=== PATIENT | female | born 1990 | race Caucasian/White ===

== ENCOUNTER → 2023-01-04 | Outpatient (CLI) | payer OTHER ==
[2023-01-04 16:27] LABS: HEMATOCRIT 38.7 % (36.0-47.0); HEMOGLOBIN 12.8 g/dl (12.0-15.5); MEAN CORPUSCULAR HEMOGLOBIN 27.7 pg (27.0-33.0); MEAN CORPUSCULAR HGB CONC 33.1 g/dl (32.0-36.5); MEAN CORPUSCULAR VOLUME 83.8 fl (80.0-96.0); PLATELET COUNT, AUTOMATED 320 10^3/uL (150-450); RED BLOOD COUNT 4.62 10^6/uL (4.00-5.40); WHITE BLOOD COUNT 9.7 10^3/uL (4.0-10.0)
[2023-01-04 17:09] LABS: HIV 1&2 SCREEN NEGATIVE (NEGATIVE)
[2023-01-04 17:16] LABS: HEPATITIS C VIRUS ABY INDEX 0.12 INDEX (<0.8)
[2023-01-04 17:44] LABS: GC DNA AMPLIFICATION NEGATIVE (NEGATIVE)
== END ==
LOC: M PLALAB 13:13
PROVIDERS: ATTEND Specialist
DX: Z34.02 Encounter for supervision of normal first pregnancy, second trimester (principal)

== ENCOUNTER → 2023-01-04 | Outpatient (CLI) | payer OTHER | LOC: M WHC 12:48 | PROVIDERS: ATTEND Specialist | DX: Z34.02 Encounter for supervision of normal first pregnancy, second trimester (principal) ==

== ENCOUNTER → 2023-02-12 | Outpatient (CLI) | payer OTHER | LOC: M WHC 12:55 | PROVIDERS: ATTEND Specialist | DX: Z34.02 Encounter for supervision of normal first pregnancy, second trimester (principal); Z3A.22 22 weeks gestation of pregnancy ==

== ENCOUNTER → 2023-03-26 | Outpatient (CLI) | payer OTHER | LOC: M PLALAB 10:59 | PROVIDERS: ATTEND Advanced Practice Midwife | DX: Z34.93 Encounter for supervision of normal pregnancy, unspecified, third trimester (principal) ==

== ENCOUNTER → 2023-04-26 | Outpatient (CLI) | payer OTHER ==
[2023-04-26 15:54] LABS: HEMOGLOBIN 11.1 g/dl (12.0-15.5); MEAN CORPUSCULAR HEMOGLOBIN 26.9 pg (27.0-33.0); MEAN CORPUSCULAR HGB CONC 32.6 g/dl (32.0-36.5); MEAN CORPUSCULAR VOLUME 82.3 fl (80.0-96.0); PLATELET COUNT, AUTOMATED 321 10^3/uL (150-450); RED BLOOD COUNT 4.13 10^6/uL (4.00-5.40); WHITE BLOOD COUNT 13.2 10^3/uL (4.0-10.0)
== END ==
LOC: M PLALAB 14:13
PROVIDERS: ATTEND Advanced Practice Midwife
DX: Z34.93 Encounter for supervision of normal pregnancy, unspecified, third trimester (principal)

== ENCOUNTER → 2023-04-26 | Outpatient (CLI) | payer OTHER | LOC: M WHC 13:31 | PROVIDERS: ATTEND Advanced Practice Midwife | DX: O36.5930 Maternal care for other known or suspected poor fetal growth, third trimester, not applicable or unspecified (principal) ==

== ENCOUNTER → 2023-05-21 | Outpatient (REF) | payer OTHER | LOC: M SFHCWAGY 16:40 | PROVIDERS: ATTEND Advanced Practice Midwife | DX: Z34.83 Encounter for supervision of other normal pregnancy, third trimester (principal) ==

== ENCOUNTER 2023-06-26 08:19 | Inpatient (IN) | payer OTHER ==
[~2023-06-26] VITALS: Ht 167.6 cm; Wt 101.8 kg
[2023-06-26] VITALS (9 sets, daily range): BP systolic 122–171; BP diastolic 73–99
[2023-06-26] MEDS ORDERED: FAMO20TA PO (08:43)
[2023-06-26] MEDS ORDERED: VALA500T5 PO (08:43)
[2023-06-26] MEDS ORDERED: HOME MED LIST COMPLETE! XX SCH (08:45)
[2023-06-26] MEDS ORDERED: LIDOCAINE 1% MDV 20ML VIAL INFIL PRN (09:05)
[2023-06-26] MEDS ORDERED: TRANEXAMIC ACID INJection 1,000 MG in NS 100 ML IV PRN (09:05)
[2023-06-26] MEDS ORDERED: METHYLERGONOVINE MALEATE 0.2MG/ML 1ML VIAL IM PRN (09:05)
[2023-06-26 09:28] LABS: HEMATOCRIT 34.1 % (36.0-47.0); HEMOGLOBIN 11.1 g/dl (12.0-15.5); MEAN CORPUSCULAR HEMOGLOBIN 25.6 pg (27.0-33.0); MEAN CORPUSCULAR HGB CONC 32.6 g/dl (32.0-36.5); MEAN CORPUSCULAR VOLUME 78.6 fl (80.0-96.0); PLATELET COUNT, AUTOMATED 316 10^3/uL (150-450); RED BLOOD COUNT 4.34 10^6/uL (4.00-5.40); WHITE BLOOD COUNT 9.6 10^3/uL (4.0-10.0)
[2023-06-26] MEDS: miSOPROStol 50MCG 1/2 TABLET PO SCH (11:55)
[2023-06-27] VITALS (49 sets, daily range): BP systolic 105–154; BP diastolic 62–102; TEMP 98.2
[2023-06-27] MEDS: diphenhydrAMINE 50MG CAP PO ONE (00:39)
[2023-06-27] MEDS: ACETAMINOPHEN 500 MG TAB PO ONE (00:40)
[2023-06-27] MEDS: PROMETHAZINE 25MG/ML 1ML VIAL IV ONE (08:28)
[2023-06-27] MEDS: BUTORPHANOL 2 MG/ML 1ML VIAL IV ONE (08:29)
[2023-06-27] MEDS: OXYTOCIN DRIP 30 UNITS in IV 1 EA IV SCH ×2 (08:29→22:15)
[2023-06-27] MEDS: LR 1,000 ML IV SCH (08:29)
[2023-06-27] MEDS ORDERED: LR 1,000 ML IV SCH (09:00)
[2023-06-27] MEDS ORDERED: OXYTOCIN DRIP 30 UNITS in IV 1 EA IV SCH (09:00)
[2023-06-27] MEDS ORDERED: ONDANSETRON 4MG 2ML VIAL IV PRN (11:10)
[2023-06-27] MEDS ORDERED: EPIDURAL/PCA KEYS XX PRN (11:10)
[2023-06-27] MEDS ORDERED: diphenhydrAMINE 50MG/ML VIAL IV PRN (11:10)
[2023-06-27] MEDS ORDERED: LR 500 ML IV PRN (11:10)
[2023-06-27] MEDS ORDERED: NALOXONE INJ 0.4MG/1ML VIAL IV PRN (11:10)
[2023-06-27] MEDS ORDERED: ePHEDrine SULFATE 25 MG/5 ML(5MG/ML) SYRINGE IVP PRN (11:10)
[2023-06-27] MEDS: FENTANYL/ROPIVACAINE/NACL BAG 100 ML EPIDURAL SCH (12:32)
[2023-06-27] MEDS: OXYTOCIN DRIP 30 UNITS in IV 1 EA IV PRN (22:04)
[2023-06-27] MEDS ORDERED: CALCIUM CARBONATE 500 MG CHEW U/D PO PRN (22:15)
[2023-06-27] MEDS ORDERED: ACETAMINOPHEN TAB 650MG DOSE (2X325MG) PO PRN (22:15)
[2023-06-27] MEDS ORDERED: RHOGAM 300MCG (1500IU) INJ IM SCH (22:15)
[2023-06-27] MEDS ORDERED: DOCUSATE SODIUM 100MG CAPSULE PO PRN (22:15)
[2023-06-27] MEDS ORDERED: DIBUCAINE 1% OINTMENT 30GM TOP PRN (22:15)
[2023-06-27] MEDS ORDERED: ANUSOL HC CREAM 30GM TOP PRN (22:15)
[2023-06-27] MEDS ORDERED: METHYLERGONOVINE MALEATE 0.2 MG TAB PO PRN (22:15)
[2023-06-27] MEDS ORDERED: IBUPROFEN 600MG TAB PO PRN (22:15)
[2023-06-27] MEDS: IBUPROFEN 800 MG TAB PO PRN (23:52)
[2023-06-27] MEDS: ACETAMINOPHEN 500 MG TAB PO PRN (23:53)
[2023-06-28] VITALS (7 sets, daily range): BP systolic 119–144; BP diastolic 69–82; O2SAT 95–99
[2023-06-28] MEDS: OXYTOCIN DRIP 30 UNITS in IV 1 EA IV SCH (03:37)
[2023-06-28] MEDS: PRENATAL VITAMINS CHEWABLE TABLET PO SCH (09:00)
[2023-06-28 10:52] LABS: HEMATOCRIT 28.5 % (36.0-47.0); HEMOGLOBIN 9.1 g/dl (12.0-15.5); MEAN CORPUSCULAR HEMOGLOBIN 25.2 pg (27.0-33.0); MEAN CORPUSCULAR HGB CONC 31.9 g/dl (32.0-36.5); MEAN CORPUSCULAR VOLUME 78.9 fl (80.0-96.0); PLATELET COUNT, AUTOMATED 292 10^3/uL (150-450); RED BLOOD COUNT 3.61 10^6/uL (4.00-5.40); WHITE BLOOD COUNT 16.6 10^3/uL (4.0-10.0)
[2023-06-29 01:29] VITALS: BP 104/66; O2SAT 99
[2023-06-29 06:00] VITALS: BP 120/79; O2SAT 100
[2023-06-29] MEDS: MEASLES,MUMPS,RUBELLA VACCINE INJ (MMR-II) SC.IMMUN ONE (07:13)
[2023-06-29] MEDS ORDERED: COLA100C5 PO (08:56)
[2023-06-29] MEDS ORDERED: IBUP-1022 PO (08:56)
[2023-06-29] MEDS ORDERED: ACET-683 PO (08:56)
[2023-06-29 10:00] VITALS: BP 119/71; O2SAT 97
== END 2023-06-29 13:23 | disposition home or self-care (01) | DRG 807 ==
LOC: M LDI 08:19 → M OBS 06-28 01:05
PROVIDERS: ADMIT Obstetrics & Gynecology; ATTEND Obstetrics & Gynecology
PROC: 3E033VJ Introduction of Other Hormone into Peripheral Vein, Percutaneous Approach (ICD-10-PCS; 2023-06-26)
PROC: 10E0XZZ Delivery of Products of Conception, External Approach (ICD-10-PCS; principal; 2023-06-27)
PROC: 0HQ9XZZ Repair Perineum Skin, External Approach (ICD-10-PCS; 2023-06-27)
DX: O48.0 Post-term pregnancy (principal); Z37.0 Single live birth; Z3A.41 41 weeks gestation of pregnancy; O70.0 First degree perineal laceration during delivery